=== PATIENT | male | born 1985 | race Caucasian/White ===

== ENCOUNTER 2020-12-16 15:02 | Emergency (ER) | payer OTHER, SELFPAY ==
--- NOTE | 2020-12-16 15:26 | ED.GENADULT ---
HPI - General Adult General Chief complaint: Wound/Laceration Stated complaint: cut arm Source: patient Mode of arrival: ambulatory Limitations: no limitations History of Present Illness HPI narrative: Mitch presented to the ER with a laceration on his posterior upper arm just superior to the elbow. He cut it on a piece of sheet metal at work last night. It was washed out and bandaged with steri strips but he came in to have it evaluated. There were no other injuries. He is due for a tetanus shot. Review of Systems Constitutional: Constitutional: Reports no additional constitutional complaints Eyes: Eyes: Reports no additional eye complaints ENT: Reports system reviewed and no additional complaints, except as documented Cardiovascular: Cardiovascular: Reports no additional cardiovascular complaints Respiratory: Respiratory: Reports no additional respiratory complaints Gastrointestinal: Gastrointestinal: Reports no additional gastrointestinal complaints Genitourinary: Genitourinary: Reports no additional male genitourinary complaints Musculoskeletal: Musculoskeletal: Reports no additional musculoskeletal complaints Integumentary/Breasts: Skin/Breast: Reports as per HPI Neurologic: Reports system reviewed and no additional complaints, except as documented Psychiatric: Psychiatric: Reports no additional psychiatric complaints Endocrine: Endocrine: Reports no additional endocrine complaints Hematologic/Lymphatic: Hematologic/Lymphatic: Reports no additional hematologic/lymphatic complaints Allergic/Immunologic: Allergic/Immunologic: Reports no additional allergic/immunologic complaints [facility] Social History Social History Gender identity (if verbalized by the patient): Male Exam Const: General: no acute distress and alert Orientation/consciousness: patient oriented x3 Limitations: No altered mental status HENMT: Head: normal to inspection Other: atrauamtic Eyes: Conjunctivae: conjunctivae normal Pupils: Equal, round and reactive pupils present Neck: Neck: normal visual inspection Chest: Chest palpation & inspection: normal inspection of the chest Resp: Effort & Inspection: normal respiratory effort Cardio: Rate: regular rate Skin: Rashes: no rashes Other: 3cm horizontal laceration into the sub cutaneous tissue just superior to the left elbow on the posterior side. Neuro: General: patient oriented x3 and moves all extremities Extrem: Other: laceration as above. Psych: Appearance: grossly normal Mental Status: mental status grossly normal Affect: normal affect Attitude: cooperative Procedures Laceration Laceration 1: Date: 12/16/20 Time: 16:00 Site: upper extremity Side (If applicable): left Description: linear Depth: simple, single layer Local Anesthetic: lidocaine 1% and with epi Amount of anesthesia used (mL): 4 Pre-repair: irrigated ====== Skin Level ====== Skin layer closed with: nylon Size (cm): 3-0 Number of sutures: 5 Technique: simple, interrupted ====== Subcutaneous Layer ====== ====== Muscle Layer ====== ====== Tendon Layer ====== Discharge Plan Discharge Clinical Impression: Laceration Patient Disposition: Home, Self-Care Condition: Stable Instructions: Laceration (ED) Additional Instructions: Please return to the emergency department for any new, concerning or worsening symptoms. Please see your doctor to have the stitches removed in 7-10 days. Follow-up/Referrals: UNKNOWN,DOCTOR [Primary Care Provider] -
[2020-12-16 16:07] VITALS: BP 160/92; PULSE 82; RESP 20; TEMP 36.7; O2SAT 98
[2020-12-16 16:20] VITALS: BP 148/88; PULSE 80; RESP 20; TEMP 36.8; O2SAT 99
== END 2020-12-16 16:22 | disposition home or self-care (01) ==
PROVIDERS: Emergency Provider Family Medicine
DX: S41.112A Laceration without foreign body of left upper arm, initial encounter (principal); W45.8XXA Other foreign body or object entering through skin, initial encounter
CPT/HCPCS: 12002; 90715; 99282